=== PATIENT | female | born 1955 | race Caucasian/White ===

== ENCOUNTER → 2019-02-01 | Outpatient (CLI) | payer OTHER ==
[~2019-02-01] MED LIST: CALC500T61 PO; LEVO50TA45 PO; LEVO75TA34 PO; LIVA2TAB PO; MELO15TA28 PO; MULT1TAB10 PO; VITA2000 PO
[2019-02-01 13:41] LABS: CALCIUM LEVEL 9.9 MG/DL (8.8-10.2)
[2019-02-01 13:56] LABS: TOTAL 25(OH) VITAMIN D 43.4 NG/ML (30.0-100.0)
== END ==
LOC: M LRY 08:15
PROVIDERS: ATTEND Internal Medicine Endocrinology, Diabetes & Metabolism
DX: M81.0 Age-related osteoporosis without current pathological fracture (principal)